=== PATIENT | female | born 2000 | race Caucasian/White ===

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

== ENCOUNTER 2022-05-24 12:17 | Emergency (ER) | payer MEDICAID, OTHER ==
[~2022-05-24] VITALS: Ht 160 cm; Wt 81.6 kg
[~2022-05-24 12:17] MED LIST: ACET-8905 PO; IBUP-2213 PO; MEDR10TA PO; ONDA8TAB87 PO
[2022-05-24 12:52] VITALS: BP 141/77
[2022-05-24 14:19] LABS: APPEARANCE,URINE CLEAR (CLEAR); BILIRUBIN,URINE 1+ (NEGATIVE); BLOOD, URINE 3+ (NEGATIVE); COLOR,URINE YELLOW (YELLOW); LEUKOCYTE ESTERASE ,URINE TRACE (NEGATIVE); NITRITE, URINE NEGATIVE (NEGATIVE); UGLUCOSE NEGATIVE (NEGATIVE)
[2022-05-24 14:39] LABS: RBC,URINE 20-50 /HPF (0-5)
== END 2022-05-24 16:51 | disposition left against medical advice (07) ==
LOC: MED 12:17
DX: R10.9 Unspecified abdominal pain (principal); Z53.21 Procedure and treatment not carried out due to patient leaving prior to being seen by health care provider
CPT/HCPCS: 81001; 87086; 99281

== ENCOUNTER 2022-12-30 23:54 | Emergency (ER) | payer MEDICAID ==
[~2022-12-30] VITALS: Ht 160 cm; Wt 85.7 kg
[2022-12-31] VITALS: BP 119/71; PULSE 89; RESP 17; TEMP 97.6; O2SAT 98
[2022-12-31] MEDS ORDERED: diphenhydrAMINE 50 MG/ML VIAL IVP ONE (00:35)
[2022-12-31] MEDS ORDERED: METOCLOPRAMIDE 10 MG/2 ML INJ VIAL IVP ONE (00:35)
[2022-12-31] MEDS ORDERED: KETOROLAC 30 MG/ML VIAL IVP ONE (00:35)
[2022-12-31] MEDS ORDERED: NACL 0.9% 1,000 ML IV ONE (00:35)
[2022-12-31 01:03] LABS: APPEARANCE,URINE CLEAR (CLEAR); BILIRUBIN,URINE NEGATIVE (NEGATIVE); BLOOD, URINE NEGATIVE (NEGATIVE); COLOR,URINE YELLOW (YELLOW); LEUKOCYTE ESTERASE ,URINE NEGATIVE (NEGATIVE); NITRITE, URINE NEGATIVE (NEGATIVE); PROTEIN,URINE TRACE (NEGATIVE); UGLUCOSE NEGATIVE (NEGATIVE); UROBILINOGEN,URINE 0.2 EU/dL (0.2 - 1)
[2022-12-31 01:05] LABS: BASOPHILS % (AUTO) 0.5 % (0.0-2.0); EOSINOPHILS # (AUTO) 0.1 K/uL (0-0.4); EOSINOPHILS % (AUTO) 0.8 % (0.0-4.0); HEMATOCRIT 38.7 % (36-48); HEMOGLOBIN 12.9 g/dL (12.0-16.0); LYMPHOCYTES # (AUTO) 1.9 K/uL (2.5-16.5); LYMPHOCYTES % (AUTO) 19.4 % (20.5-51.1); MEAN CORPUSCULAR HEMOGLOBIN 29 pg (27-31); MEAN CORPUSCULAR HGB CONC 33 g/dL (33-37); MEAN CORPUSCULAR VOLUME 85.3 fL (80-94); MONOCYTES # (AUTO) 0.7 K/uL (0.8-1.0); MONOCYTES % (AUTO) 7.5 % (1.7-9.3); NEUTROPHILS # (AUTO) 7.1 K/uL (1.8-7.7); NEUTROPHILS % (AUTO) 71.8 % (42.2-75.2); PLATELET COUNT (AUTO) 302 K/uL (140-450); RED BLOOD CELL COUNT(AUTO) 4.53 MIL/uL (4.20-5.40); WHITE BLOOD COUNT (AUTO) 9.9 K/uL (4.5-11.0)
[2022-12-31 01:13] LABS: BACTERIA,URINE 1+ /HPF (None Seen); MUCUS,URINE 1+ /LPF (None Seen); RBC,URINE 0-5 /HPF (0-5); WBC,URINE 0-5 /HPF (0-5)
[2022-12-31 01:14] LABS: ALBUMIN 3.5 g/dL (3.4-5.0); ANION GAP 14.6 (8-16); CALCIUM 8.2 mg/dL (8.5-10.1); CARBON DIOXIDE 23.9 mmol/L (21-32); CREATININE 0.6 mg/dL (0.6-1.3); POTASSIUM 3.5 mmol/L (3.5-5.1); TOTAL BILIRUBIN 0.4 mg/dL (0.0-1.0)
[2022-12-31] MEDS ORDERED: ACET-10509 PO (01:35)
[2022-12-31] MEDS ORDERED: METO-485 PO (01:35)
[2022-12-31 02:01] VITALS: BP 126/69; PULSE 87; RESP 17; TEMP 97.6; O2SAT 98
== END 2022-12-31 02:01 | disposition home or self-care (01) ==
LOC: MED 23:54
DX: R51.9 Headache, unspecified (principal); R42 Dizziness and giddiness; R11.10 Vomiting, unspecified; R07.89 Other chest pain; Z79.899 Other long term (current) drug therapy; Z79.1 Long term (current) use of non-steroidal anti-inflammatories (NSAID)
CPT/HCPCS: 36415; 80053; 81001; 81025; 85025; 93005; 96361; 96374; 96375; 99284; J1200; J1885; J2765; J7030

== ENCOUNTER 2023-07-30 16:31 | Emergency (ER) | payer MEDICAID ==
[~2023-07-30] VITALS: Ht 157.5 cm; Wt 91.3 kg
[~2023-07-30 16:31] MED LIST changes: +ACET-10509 PO; +METO-485 PO
[2023-07-30 16:37] VITALS: BP 123/80; PULSE 94; RESP 20; TEMP 97.8; O2SAT 97
[2023-07-30 17:11] VITALS: O2SAT 98
[2023-07-30 17:31] LABS: BASOPHILS % (AUTO) 0.3 % (0.0-2.0); EOSINOPHILS # (AUTO) 0.1 K/uL (0-0.4); EOSINOPHILS % (AUTO) 1.4 % (0.0-4.0); HEMATOCRIT 40.6 % (36-48); LYMPHOCYTES # (AUTO) 2.6 K/uL (2.5-16.5); LYMPHOCYTES % (AUTO) 29.4 % (20.5-51.1); MEAN CORPUSCULAR HEMOGLOBIN 29 pg (27-31); MEAN CORPUSCULAR HGB CONC 34 g/dL (33-37); MEAN CORPUSCULAR VOLUME 85.5 fL (80-94); MONOCYTES # (AUTO) 0.6 K/uL (0.8-1.0); MONOCYTES % (AUTO) 6.9 % (1.7-9.3); NEUTROPHILS # (AUTO) 5.5 K/uL (1.8-7.7); PLATELET COUNT (AUTO) 308 K/uL (140-450); RED BLOOD CELL COUNT(AUTO) 4.75 MIL/uL (4.20-5.40); RED CELL DISTRIBUTION WIDTH 13.4 % (11.6-13.7); WHITE BLOOD COUNT (AUTO) 8.9 K/uL (4.5-11.0)
[2023-07-30 17:42] LABS: ANION GAP 10.5 (8-16); CALCIUM 8.3 mg/dL (8.5-10.1); CARBON DIOXIDE 28.8 mmol/L (21-32); CREATININE 0.6 mg/dL (0.6-1.3); POTASSIUM 3.3 mmol/L (3.5-5.1)
[2023-07-30 18:03] VITALS: BP 127/84; PULSE 92; RESP 20; TEMP 98.1; O2SAT 98
[2023-07-30] MEDS: ALUMINUM HYD/MAG/SIMETHICONE 30 ML UDC PO ONE (18:46)
[2023-07-30] MEDS: ONDANSETRON 4 MG ODT PO ONE (18:46)
[2023-07-30] MEDS ORDERED: FAMO-90 PO (19:08)
[2023-07-30] MEDS ORDERED: ONDA-188 SL (19:08)
== END 2023-07-30 19:14 | disposition home or self-care (01) ==
LOC: MED 16:31
DX: R07.89 Other chest pain (principal); R11.2 Nausea with vomiting, unspecified; R06.02 Shortness of breath; Z90.49 Acquired absence of other specified parts of digestive tract; Z79.1 Long term (current) use of non-steroidal anti-inflammatories (NSAID); Z79.899 Other long term (current) drug therapy; Z86.718 Personal history of other venous thrombosis and embolism
CPT/HCPCS: 36415; 71045; 80048; 81025; 84484; 85025; 85379; 93005; 99285; Q0162

== ENCOUNTER 2023-11-01 14:36 | Emergency (ER) | payer MEDICAID ==
[~2023-11-01] VITALS: Ht 160 cm; Wt 93.0 kg
[~2023-11-01 14:36] MED LIST changes: -ACET-10509 PO; +ACET500T99 PO; +FAMO-90 PO; +ONDA-188 SL
[2023-11-01 14:52] VITALS: BP 125/72; PULSE 98; RESP 19; TEMP 98.1; O2SAT 99
[2023-11-01] MEDS: NACL 0.9% 1,000 ML IV SCH (15:55)
[2023-11-01] MEDS: PROCHLORPERAZINE 10 MG/2 ML VIAL IVP SCH (15:56)
[2023-11-01] MEDS: KETOROLAC 30 MG/ML VIAL IVP SCH (15:58)
[2023-11-01 16:44] LABS: APPEARANCE,URINE CLEAR (CLEAR); BILIRUBIN,URINE NEGATIVE (NEGATIVE); BLOOD, URINE NEGATIVE (NEGATIVE); COLOR,URINE YELLOW (YELLOW); LEUKOCYTE ESTERASE ,URINE NEGATIVE (NEGATIVE); NITRITE, URINE NEGATIVE (NEGATIVE); PROTEIN,URINE NEGATIVE (NEGATIVE); UGLUCOSE NEGATIVE (NEGATIVE); UROBILINOGEN,URINE 0.2 EU/dL (0.2 - 1)
[2023-11-01] MEDS ORDERED: IBUP-2218 PO (17:20)
[2023-11-01] MEDS ORDERED: ONDA-188 SL (17:20)
[2023-11-01 17:34] VITALS: BP 112/72; PULSE 88; RESP 16; TEMP 98.1; O2SAT 99
== END 2023-11-01 17:34 | disposition home or self-care (01) ==
LOC: MED 14:36
DX: R51.9 Headache, unspecified (principal); R03.0 Elevated blood-pressure reading, without diagnosis of hypertension; Z79.899 Other long term (current) drug therapy
CPT/HCPCS: 81003; 81025; 82948; 96361; 96374; 96375; 99284; J0780; J1885; J7030